=== PATIENT | male | born 1975 ===

== ENCOUNTER 2023-08-06 10:48 | Outpatient (CLI) | payer BC, SELFPAY ==
[2023-08-06 09:02] LABS: HGB 14.2 g/dL (13.5-17.5); MCH 29.2 pg (27.0-33.0); MCHC 31.6 % (32.0-36.0); MCV 93 fL (80-95); MPV 9.7 fL (8.0-11.0); Platelet Count 229 10^3/uL (130-400); RBC 4.86 10^6/uL (4.36-5.78); RDW 13.2 % (11.8-14.1); RDW-SD 44.7 fL; WBC 7.08 10^3/uL (4.4-10.8)
[2023-08-06 09:51] LABS: Anion Gap 7.6 mmol/L (3-11); BUN 15 mg/dL (7-18); CO2 28.4 mmol/L (21.0-32.0); CREATININE 0.8 mg/dL (0.70-1.30); Calcium 9.1 mg/dL (8.5-10.1); Chloride 107 mmol/L (98-107); Estimated GFR 109.17 (mL/min/1.73m2); Glucose 104 mg/dL (74-106); Potassium 4.2 mmol/L (3.5-5.1); Sodium 143 mmol/L (136-145)
[2023-08-06 09:52] LABS: Hemoglobin A1C 4.9 % (<5.7)
--- OUTSIDE RECORDS SUMMARY | 2023-08-06 10:54 | XMS_ITS | Continuity of Care Document ---
Author Name Unknown Organization [facility] Address [address] [place] [address] Care Team Providers Care College Tutor Name Role Phone AYE COREAS Primary Care Physician Encounter BVT Date(s): 03/27/23 - 03/27/23 [facility] [address] [place] [address] Discharge Disposition: Home Attending Physician: AYE COREAS APRN Allergies, Adverse Reactions, Alerts Substance Reaction Severity Status NSAIDs contraindication for litium use Severe Active Assessment and Plan Future Scheduled Tests Laboratory* Lipid Panel Standard 07/30/22 Radiology* XR Chest 2 Views 03/18/23 Immunizations Given and Recorded Vaccine Date Status Refusal Reason SARS-COV-2 (COVID-19) vaccine, unspecifi 04/22/22 Recorded SARS-CoV-2 (COVID-19) mRNA BNT-162b2 vax 06/02/21 Recorded SARS-CoV-2 (COVID-19) mRNA BNT-162b2 vax 11/12/20 Recorded SARS-CoV-2 (COVID-19) mRNA BNT-162b2 vax 10/21/20 Recorded influenza, inactivated 04/24/17 Recorded Tdap 07/24/16 Recorded Medications Albuterol (Eqv-ProAir HFA) 90 mcg/inh inhalation aerosol = 2 puff(s), INH, q4hr, # 8.5 gm, 3 Refill(s), Pharmacy: [facility] #[id number], 2 puff(s) [id number],x30 day(s) Start Date: 03/17/23 Stop Date: 07/15/23 Status: Ordered lithium 300 mg oral tablet, extended release 1,500 mg = 5 tab(s), Oral, Once a day (at bedtime), 0 Refill(s) Start Date: 05/27/22 Status: Ordered multivitamin = 1 tab(s), Oral, Daily, 0 Refill(s) Start Date: 08/29/22 Status: Ordered [place] Gummies [place] Gummies, 1 gummy, Oral, Daily, 0 Refill(s) Start Date: 08/29/22 Status: Ordered sertraline 100 mg oral tablet 200 mg = 2 tab(s), Oral, Daily, 0 Refill(s) Start Date: 05/27/22 Status: Ordered traZODone 100 mg oral tablet 100 mg = 1 tab(s), Oral, Once a day (at bedtime), 0 Refill(s) Start Date: 08/29/22 Status: Ordered Problem List Condition Confirmation Course Effective Dates Status H ealth Status Informant Acute URI Confirmed Active Anxiety Confirmed Active Bipolar disorder Confirmed Active Cough Confirmed Active Family history of carcinomas (Renae Cell) Confirmed Active Mitral regurgitation Confirmed Active Obstructive sleep apnea on CPAP Confirmed Active [place] use Confirmed Active Vital Signs Most recent to oldest [Reference Range]: 1 Peripheral Pulse Rate [60-100 bpm] 72 bp m (03/27/23 11:34 AM) Blood Pressure [90-140/60-90 mmHg] 116/6 4mmHg (03/27/23 11:34 AM) Mean Arterial Pressure, Cuff [70-110 mmH g] 81 mmHg (03/27/23 11:34 AM) SpO2 [92-100 %] 98 % (03/27/23 11:34 AM) BP Method Manual (03/27/23 11:34 AM) Weight 86.2 kg (03/27/23 11:34 AM) Social History Social History Type Response Tobacco Never tobacco user T obacco Use:. Sex Male Patient Care team information Care Team Personnel Name: AYE COREAS APRN Position: [facility] ED Physician LP Member Role: Informed Provider Address: Address: [address] [place] [phone] Care Team Related Persons Name: DOT RICHARDS
--- OUTSIDE RECORDS SUMMARY | 2023-08-06 10:54 | XMS_ITS | Continuity of Care Document ---
Author Name Unknown Organization [facility] Address [address] [place] [address] Care Team Providers Care Lock Corner Machine Operator Name Role Phone AYE COREAS Primary Care Physician Encounter BVT Date(s): 03/31/23 - 03/31/23 [facility] [address] [place] [address] Discharge Disposition: Home Allergies, Adverse Reactions, Alerts Substance Reaction Severity [...] q4hr, # 8.5 gm, 3 Refill(s), Pharmacy: [facility] #[id number], 2 puff(s) [id number] day(s) Start Date: 03/17/23 Stop Date: 07/15/23 Status: Ordered lithium 300 mg oral tablet, extended release 1,500 mg = 5 tab(s), Oral, Once a day (at bedtime), 0 Refill(s) Start Date: 05/27/22 Status: Ordered multivitamin = 1 tab(s), Oral, Daily, 0 Refill(s) Start Date: 08/29/22 Status: Ordered [place] Gummies [place] Gummies, 1 gummy, Oral, Daily, 0 Refill(s) [...] Obstructive sleep apnea on CPAP Confirmed Active [place] use Confirmed Active Social History Social History Type Response Tobacco Never tobacco user T obacco Use:. Sex Male Patient Care team information Care Team Personnel Name: AYE COREAS APRN Position: [facility] ED Physician LP Member Role: Informed Provider Address: Address: [address] [place] [phone] [place] Care Team Related Persons Name: DOT RICHARDS
--- OUTSIDE RECORDS SUMMARY | 2023-08-06 10:54 | XMS_ITS | Continuity of Care Document ---
Author Name Unknown Organization [facility] Address [address] [place] [id number] Care Team Providers Care Irrigationist Designer Name Role Phone AYE OCREAS Primary Care Physician Encounter BVT Date(s): 03/17/23 - 03/17/[address] [address] [phone] Encounter Diagnosis Cough(Discharge Diagnosis) - 03/17/23 Discharge Disposition: Home Attending Physician: Demario Doyle Admitting Physician: Demario Doyle Allergies, Adverse Reactions, Alerts Substance Reaction Severity Status NSAIDs contraindication for litium use Severe Active Assessment and Plan Future Scheduled Tests Laboratory* Lipid Panel Standard 07/30/22 Immunizations Given and Recorded Vaccine Date Status Refusal Reason SARS-COV-2 (COVID-19) vaccine, unspecifi 04/22/22 Recorded SARS-CoV-2 (COVID-19) mRNA BNT-162b2 vax 06/02/21 Recorded SARS-CoV-2 (COVID-19) mRNA BNT-162b2 vax 11/12/20 Recorded SARS-CoV-2 (COVID-19) mRNA BNT-162b2 vax 10/21/20 Recorded influenza, inactivated 04/24/17 Recorded Tdap 07/24/16 Recorded Medications Albuterol (Eqv-ProAir HFA) 90 mcg/inh inhalation aerosol = 2 puff(s), INH, q4hr, # 8.5 gm, 3 Refill(s), Pharmacy: [facility] #[id number], 2 puff(s) [id number],x30 day(s) Start Date: 03/17/23 Stop Date: 07/15/23 Status: Ordered doxycycline hyclate 100 mg oral capsule 100 mg = 1 cap(s), Oral, BID, # 14 cap(s), 0 Refill(s), [id number], 1 cap(s) Oral BID,x7 day(s) Start Date: 03/17/23 Stop Date: 03/24/23 Status: Ordered lithium 300 mg oral tablet, extended release 1,500 mg = 5 tab(s), Oral, Once a day (at bedtime), 0 Refill(s) Start Date: 05/27/22 Status: Ordered multivitamin = 1 tab(s), Oral, Daily, 0 Refill(s) Start Date: 08/29/22 Status: Ordered [place] Gummies G[place] Gummies, 1 gummy, Oral, Daily, 0 Refill(s) [...] Cough Confirmed Active Family history of carcinomas Confirmed Active Mitral regurgitation Confirmed Active Obstructive sleep apnea on CPAP Confirmed Active [place] use Confirmed Active Social History Social History Type Response Tobacco Never tobacco user T obacco Use:. Sex Male Patient Care team information Care Team Personnel Name: AYE COREAS APRN Position: [facility] ED Physician LP Member Role: Informed Provider Address: Address: [address] [place] [phone] [place] Care Team Related Persons Name: DOT RICHARDS
--- OUTSIDE RECORDS SUMMARY | 2023-08-06 10:54 | XMS_ITS | Continuity of Care Document ---
Author Name Unknown Organization [facility] Address [address] [place] [address] Care Team Providers Care Flight Service Agent Name Role Phone AYE COREAS Primary Care Physician Encounter BVT Date(s): 05/28/22 - 05/28/22 [facility] [address] [place] [address] Discharge Disposition: Home Attending Physician: AYE COREAS APRN Allergies, Adverse Reactions, Alerts Substance Reaction Severity Status NSAIDs contraindication for litium use Severe Active Assessment and Plan Future Appointments Future Scheduled Tests Laboratory* Lipid Panel Standard 05/28/22 Functional Status 05/28/22 COVID-19 Screening None Immunizations Given and Recorded Vaccine Date Status Refusal Reason SARS-CoV-2 (COVID-19) mRNA BNT-162b2 vax 06/02/21 Recorded SARS-CoV-2 (COVID-19) mRNA BNT-162b2 vax 11/12/20 Recorded SARS-CoV-2 (COVID-19) mRNA BNT-162b2 vax 10/21/20 Recorded influenza, inactivated 04/24/17 Recorded Tdap 07/24/16 Recorded Medications lithium 300 mg oral tablet, extended release 1,500 mg = 5 tab(s), Oral, Once a day (at bedtime), 0 Refill(s) Start Date: 05/27/22 Status: Ordered sertraline 100 mg oral tablet 200 mg = 2 tab(s), Oral, Daily, 0 Refill(s) Start Date: 05/27/22 Status: Ordered Problem List Condition Confirmation Course Effective Dates Status Health St atus Informant Anxiety Confirmed Active Bipolar disorder Confirmed Active Family history of carcinomas Confirmed Active Vital Signs Most recent to oldest [Reference Range]: 1 Temperature Temporal Artery [36.3-37.8 D egC] 36.5 DegC (05/28/22 1:03 PM) Peripheral Pulse Rate [60-100 bpm] 70 bp m (05/28/22 1:03 PM) Respiratory Rate [14-20 br/min] 18 br/mi n (05/28/22 1:03 PM) Blood Pressure [90-140/60-90 mmHg] 124/8 0mmHg (05/28/22 1:03 PM) Mean Arterial Pressure, Cuff [70-110 mmH g] 95 mmHg (05/28/22 1:03 PM) BP Site Right arm (05/28/22 1:03 PM) Pulse Site Pulse Oximetry (05/28/22 1:03 PM) SpO2 [95 %] 99 % (05/28/22 1:03 PM) Height 177.5 cm (05/28/22 1:03 PM) Height/Length Measured (inches) 69.9 in (05/28/22 1:03 PM) Weight 95.6 kg (05/28/22 1:03 PM) Weight Measured (lbs) 210.762 lb (05/28/22 1:03 PM) BSA Measured 2.17 m2 (05/28/22 1:03 PM) Body Mass Index 30.34 kg/m2 (05/28/22 1:03 PM) Social History Social History Type Response Tobacco Never tobacco user T obacco Use:. Sex Male Patient Care team information Personnel Name: AYE COREAS APRN Address: Address: [address] [place] [phone]
--- OUTSIDE RECORDS SUMMARY | 2023-08-06 10:54 | XMS_ITS | Continuity of Care Document ---
Author Name Unknown Organization [facility] Address [address] [place] [address] Care Team Providers Care Chemicals Fermentation Operator Name Role Phone AEY COREAS Primary Care Physician [phone] Encounter BVT Date(s): 08/29/22 - 08/29/22 [facility] [address] [place] [address] [place] [address] Encounter Diagnosis Palpitations(Discharge Diagnosis) - 08/29/22 Mixed hyperlipidemia(Discharge Diagnosis) - 08/29/22 Discharge Disposition: Home Attending Physician: COLBY SILVA Allergies, Adverse Reactions, Alerts Substance Reaction Severity Status NSAIDs contraindication for litium use Severe Active Assessment and Plan Future Scheduled Tests Laboratory* Lipid Panel Standard 07/30/22 Functional Status 08/29/22 COVID-19 Screening None Immunizations Given and Recorded [...] Refill(s) Start Date: 05/27/22 Status: Ordered multivitamin 1 tab(s), Oral, Daily, 0 Refill(s) Start Date: 08/29/22 Status: Ordered Monitor Gummies Monitor Gummies, 1 gummy, Oral, Daily, 0 Refill(s) [...] Effective Dates Status H ealth Status Informant Anxiety Confirmed Active Bipolar disorder Confirmed Active Family history of carcinomas Confirmed Active Mitral regurgitation Confirmed Active [place] use Confirmed Active Vital Signs Most recent to oldest [Reference Range]: 1 Peripheral Pulse Rate [60-100 bpm] 78 bp m (08/29/22 1:12 PM) Blood Pressure [90-140/60-90 mmHg] 114/7 2mmHg (08/29/22 1:12 PM) Mean Arterial Pressure, Cuff [70-110 mmH g] 86 mmHg (08/29/22 1:12 PM) BP Site Right arm (08/29/22 1:12 PM) BP Site Repeat Left arm (08/29/22 1:12 PM) SpO2 [92-100 %] 96 % (08/29/22 1:12 PM) BP Systolic Repeat 114 mmHg (08/29/22 1:12 PM) BP Diastolic Repeat 66 mmHg (08/29/22 1:12 PM) Weight 92.3 kg (08/29/22 1:12 PM) Weight Measured (lbs) 203.486 lb (08/29/22 1:12 PM) Social History Social History Type Response Tobacco Never tobacco user T obacco Use:. Sex Male Primary care Note * COLBY SILVA E: PERFORM Event Display: Office/Clinic Note Authored Date: [id number] PATO RICHARDS :1975 Age:47 years Sex:Male Visit Date:08/29/2022 Primary Care Physician: AYE COREAS APRN Chief Complaint new patient visit History of Present Illness I had the pleasure of meeting??Mr.??Nick??in the cardiology clinic today.??He is??a??47 year old man, new to me, referred for??elevated LV??function??on echo. ?? Patient with no relevant cardiac history.?? Non-smoker, no alcohol use, no drug use, no chronic medical conditions.?? Family history of atrial fibrillation on his mother side status post ablation,??father had PVCs under stress.?? No current concerning symptoms??for the patient. ? Monitor report from [facility]??performed in March 2021??with normal diurnal variation in heart rate??low ectopy burden and no arrhythmia. Echocardiogram??report from [facility] 06/26/2021??performed for palpitations:??The left ventricular size, segmental motion and systolic function.?Hyperdynamic LV function??estimated at??78%.?? Normal right ventricular size and function.?? Normal atria.?? No hemodynamically??significant valve disease. ?? SH: Smoking:??None??smoker Alcohol:??None Illicit drug use:??None ? FH:?? No family history of premature CAD or sudden cardiac . Physical Exam Vitals & Measurements HR:??78??(Peripheral)?? BP:??114/72?? BP:??114/66(Repeat)?? SpO2:??96%?? WT:??92.3??kg?? General:??Well appearing,??no acute distress. ?? Eye: Normal conjunctiva. Neck: Supple, no carotid bruits, no JVD.? Lungs: Clear to auscultation, non-labored respiration.?? Heart: Normal rate, regular rhythm, no murmur, or edema. Assessment/Plan 1.??Palpitations??R00.2 No current concerning symptoms.?? No concerning abnormality on??prior Holter. 2.??Mixed hyperlipidemia??E78.2 Low??cardiovascular risk.?? Agree with??current diet control. Patient referred due to??echo??cardiogram report from [facility]??reporting hyperdynamic LV systolic function.?? This is not a pathologic finding.?? I??do not have access to the imaging however??the report showed no??abnormality in the cardiac structure and function. ??No concerning symptoms either.?? No f urther??cardiac follow-up??or investigation is recommended at this time. Problem List/Past Medical History Ongoing Anxiety Bipolar disorder Family history of carcinomas [place] use Mitral regurgitation Historical No qualifying data Medications lithium 300 mg oral tablet, extended release, 1500 mg= 5 tab(s), Oral, Once a day (at bedtime) multivitamin, 1 tab(s), Oral, Daily Monitor Gummies, 1 gummy, Oral, Daily sertraline 100 mg oral tablet, 200 mg= 2 tab(s), Oral, Daily traZODone 100 mg oral tablet, 100 mg= 1 tab(s), Oral, Once a day (at bedtime) Allergies NSAIDs??(contraindication for litium use) [Electronically Signed on: 08/29/2022 13:32 EST] COLBY SILVA MD [Verified on: 08/29/2022 13:32 EST] COLBY SILVA MD Patient Care team information Care Team Personnel Name: AYE COREAS APRN Position: [facility] Physician Acute/Clinic/PNED Member Role: Informed Provider Address: Address: [address] [place] [phone] Care Team Related Persons Name: DOT RICHARDS
--- OUTSIDE RECORDS SUMMARY | 2023-08-06 10:54 | XMS_ITS | Continuity of Care Document ---
Author Name Unknown Organization Address [address] [place] [phone] Care Team Providers Care Swine Nutritionist Name Role Phone AYE COREAS Primary Care Physician Encounter BVT Date(s): 04/17/23 - 04/17/[address] [address] [phone] Discharge Disposition: Home Attending Physician: AYE COREAS APRN Admitting Physician: AYE COREAS APRN Allergies, Adverse Reactions, Alerts Substance Reaction Severity Status NSAIDs contraindication for litium use Severe Active Assessment and Plan Future Scheduled Tests Laboratory* Lipid Panel Standard 07/30/22 Immunizations Given and Recorded Vaccine Date Status Refusal Reason influenza, inactivated 04/07/23 Recorded influenza, inactivated 04/24/17 Recorded SARS-CoV-2 mRNA [id number] 04/07/23 Recorded SARS-COV-2 (COVID-19) vaccine, unspecifi 04/22/22 Recorded SARS-CoV-2 (COVID-19) mRNA BNT-162b2 vax 06/02/21 Recorded SARS-CoV-2 (COVID-19) mRNA BNT-162b2 vax 11/12/20 Recorded SARS-CoV-2 (COVID-19) mRNA BNT-162b2 vax 10/21/20 Recorded Tdap 07/24/16 Recorded Medications Albuterol (Eqv-ProAir HFA) 90 mcg/inh inhalation aerosol = 2 puff(s), INH, q4hr, # 8.5 gm, 3 Refill(s), Pharmacy: [facility] #[id number], 2 puff(s) [id number],x30 day(s) Start Date: 03/17/23 Stop Date: 07/15/23 Status: Ordered multivitamin = 1 tab(s), Oral, Daily, 0 Refill(s) Start Date: 08/29/22 Status: Ordered [place] Gummies Freedom Gummies, 1 gummy, Oral, Daily, 0 Refill(s) Start Date: 08/29/22 Status: Ordered sertraline 100 mg oral tablet 200 mg = 2 tab(s), Oral, Daily, 0 Refill(s) Start Date: 05/27/22 Status: Ordered sulindac 150 mg oral tablet 60 tab(s), 0 Refill(s), 0 Refill(s) Start Date: 04/06/23 Status: Ordered traZODone 100 mg oral tablet 100 mg = 1 tab(s), Oral, Once a day (at bedtime), 0 Refill(s) Start Date: 08/29/22 Status: Ordered Problem List Condition Confirmation Course Effective Dates Status H ealth Status Informant Acute URI Confirmed Active Anxiety Confirmed Active Bipolar disorder Confirmed Active Cough Confirmed Active Family history of carcinomas (Renae Cell) Confirmed Active Lingular pneumonia Confirmed Active Mitral regurgitation Confirmed Active Obstructive sleep apnea on CPAP Confirmed Active [place] use Confirmed Active Results Radiology Reports * Exam Date Time Procedure Performing Provider Status 04/17/23 3:18 PM XR Chest 2 Views Sophia Casanova; Tucker (Verified) Notes: (XR Chest 2 Views) Reason For Exam: follow up pneumonia XR Chest 2 Views EXAMINATION: XR Chest 2 Views CLINICAL HISTORY: follow up pneumonia TECHNIQUE: PA and lateral chest radiograph. COMPARISON: 03/17/2023. FINDINGS: Normal cardiomediastinal silhouette and vascular markings. Resolution of lingular opacity. No pneumothorax or pleural effusion. IMPRESSION: Resolution of lingular pneumonia I have personally reviewed the image(s) and the resident's interpretation and agree with the findings, Valerie Hernandez MD at 04/17/2023 4:15 PM Thank you for letting us participate in the care of this patient. If you are a health care provider and have any questions regarding this report, please contact the number below. For patients who have questions please contact the health home health care respiratory therapist that requested your imaging first. Electronically signed by: Valerie Hernandez MD, [facility] ([phone]), at 04/17/2023 4:15 PM Final Dictated: 04/17/2023 4:15 pm VALERIE HERNANDEZ Signed (Electronic Signature): 04/17/2023 4:15 pm Signed by: VALERIE HERNANDEZ Social History Social History Type Response Tobacco Never tobacco user T obacco Use:. Sex Male Patient Care team information Care Team Personnel Name: AYE COREAS APRN Position: [facility] ED Physician LP Member Role: Informed Provider Address: Address: [address] [place] [address] Care Team Related Persons Name: DOT RICHARDS
--- OUTSIDE RECORDS SUMMARY | 2023-08-06 10:54 | XMS_ITS | Continuity of Care Document ---
Author Name Unknown Organization [facility] Address [address] [place] [address] Care Team Providers Care Superintendent Police Name Role Phone AYE COREAS Primary Care Physician Encounter BVT Date(s): 07/30/22 - 07/30/22 [facility] [address] [place] [address] Encounter Diagnosis Bipolar disorder(Discharge Diagnosis) - 07/30/22 Hyperlipidemia(Discharge Diagnosis) - 07/30/22 Screen for colon cancer(Discharge Diagnosis) - 07/30/22 Discharge Disposition: Home Attending Physician: AYE COREAS APRN Allergies, Adverse Reactions, Alerts Substance Reaction Severity Status NSAIDs contraindication for litium use Severe Active Assessment and Plan Future Appointments Future Scheduled Tests Laboratory* Lipid Panel Standard 07/30/22 Functional Status 07/30/22 COVID-19 Screening None Immunizations Given and Recorded [...] carcinomas Confirmed Active Mitral regurgitation Confirmed Active [place] use Confirmed Active Vital Signs Most recent to oldest [Reference Range]: 1 Temperature Temporal Artery [36.3-37.8 D egC] 36.7 DegC (07/30/22 7:55 AM) Apical Heart Rate [60-100 bpm] 73 bpm (07/30/22 7:55 AM) Respiratory Rate [14-20 br/min] 18 br/mi n (07/30/22 7:55 AM) Blood Pressure [90-140/60-90 mmHg] 124/7 8mmHg (07/30/22 7:55 AM) Mean Arterial Pressure, Cuff [70-110 mmH g] 93 mmHg (07/30/22 7:55 AM) BP Site Right arm (07/30/22 7:55 AM) Pulse Site Pulse Oximetry (07/30/22 7:55 AM) SpO2 [92-100 %] 99 % (07/30/22 7:55 AM) Height 177.5 cm (07/30/22 7:55 AM) Height/Length Measured (inches) 69.9 in (07/30/22 7:55 AM) Weight 96.3 kg (07/30/22 7:55 AM) Weight Measured (lbs) 212.305 lb (07/30/22 7:55 AM) BSA Measured 2.18 m2 (07/30/22 7:55 AM) Body Mass Index 30.57 kg/m2 (07/30/22 7:55 AM) Social History Social History Type Response Tobacco Never tobacco user T obacco Use:. Sex Male Hospital Discharge Instructions Follow Up Care 07/30/2022 07:49:55 With:Return to this practice Address: When:Within 6 Month(s) Primary care Note * AYE COREAS APRN: PERFORM Event Display: Office/Clinic Note Authored Date: [id number] PATO RICHARDS :1975 Age:46 years Sex:Male Visit Date:07/30/2022 Primary Care Physician: AYE COREAS APRN Chief Complaint 2 MO F/U History of Present Illness ?? Here for follow up. ?? Will schedule with cardiology??(playing phone tag). Has appt with sleep medicine in August. ?? Has made major dietary changes to address elevated triglycerides, low HDL, mildly elevated LDL. Low fat meats, minimal dairy, whole grains, fruits/veg. ?? Working toward more exercise. Hasn't started yet. Very busy. ?? Physical Exam Vitals & Measurements T:??36.7?C ??(Temporal Artery)?? HR:??73??(Apical)?? RR:??18?? BP:??124/78?? SpO2:??99%?? HT:??177.5??cm?? WT:??96.3??kg?? BMI:??30.57?? BSA:??2.18?? GEN:?no acute distress, speaking comfortably LUNGS: non-labored respiration NEURO:?Alert and oriented x 3,??normal speech PSYCH: affect normal ?? Assessment/Plan 1.??Hyperlipidemia??E78.5 Continue with lifestyle changes. Repeat labs in ~3 months. ?? Ordered: Lipid Panel Standard, Blood, Routine collect, *Est. 07/30/22 due within 12 month(s), Hyperlipidemia, Order for future visit ?? 2.??Bipolar disorder??F31.9 Stable, managed by psychiatry. ? 3.??Screen for colon cancer??Z12.11 See TE re Cologuard - ordered but pt has not received. ?? Future Orders Lipid Panel Standard, Blood, Routine collect, *Est. 07/30/22 due within 12 month(s), Hyperlipidemia, Order for future visit Follow Up Instructions With When Contact Information Return to this practice In 6 months Additional Instructions: Problem List/Past Medical History Ongoing Anxiety Bipolar disorder Family history of carcinomas [place] use Mitral regurgitation Historical No qualifying data Medications lithium 300 mg oral tablet, extended release, 1500 mg= 5 tab(s), Oral, Once a day (at bedtime) sertraline 100 mg oral tablet, 200 mg= 2 tab(s), Oral, Daily Allergies NSAIDs??(contraindication for litium use) Social History Alcohol Past Electronic Cigarette/Vaping Electronic Cigarette Use: Never. Substance Abuse Never Tobacco Never tobacco user Tobacco Use:. Family History Alcohol abuse: Father. Atrial fibrillation: Mother. Depression: Mother. Myocardial infarction: Uncle (Maternal). Polyp colon: Mother and Father. Immunizations Vaccine Date Status SARS-COV-2 (COVID-19) vaccine, unspecifi 04/22/2022 Recorded SARS-CoV-2 (COVID-19) mRNA BNT-162b2 vax 06/02/2021 Recorded SARS-CoV-2 (COVID-19) mRNA BNT-162b2 vax 11/12/2020 Recorded SARS-CoV-2 (COVID-19) mRNA BNT-162b2 vax 10/21/2020 Recorded influenza, inactivated 04/24/2017 Recorded Tdap 07/24/2016 Recorded [Electronically Signed on: 07/30/2022 08:44 EST] AYE COREAS APRN, APRN [Verified on: 07/30/2022 08:44 EST] AYE COREAS APRN, APRN Patient Care team information Personnel Name: AYE COREAS APRN Address: Address: [address] [place] [phone]
--- OUTSIDE RECORDS SUMMARY | 2023-08-06 10:54 | XMS_ITS | Continuity of Care Document ---
Author Name Unknown Organization [facility] Address [address] [place] [phone]- Care Team Providers Care Landscape Artist Name Role Phone AYE COREAS Primary Care Physician Encounter BVT Date(s): 05/02/22 - 05/02/[address] [address] [phone] Discharge Disposition: Home Attending Physician: AYE COREAS APRN Admitting Physician: AYE COREAS APRN Allergies, Adverse Reactions, Alerts No Known Allergies Assessment and Plan Future Appointments Problem List Condition Confirmation Course Effective Dates Status Health St atus Informant Anxiety Confirmed Active Bipolar disorder Confirmed Active Family history of carcinomas Confirmed Active Results Laboratory List Name Date Basic Metabolic Panel Standard (BMP [place] dard) 05/02/22 [place] ([place]) Level 05/02/22 Most recent to oldest [Reference Range]: 1 eGFR CKD-EPI [>=60 mL/min/1.73 m2] 111.1 2 mL/min/1.73 m2 *NA* (05/02/22 7:37 AM) Creatinine [0.70-1.20 mg/dL] 0.77 mg/dL (05/02/22 7:37 AM) AGAP [10.0-18.0 mmol/L] 8.3 mmol/L *LOW* (05/02/22 7:37 AM) Glucose Lvl [70-100 mg/dL] 96 mg/dL (05/02/22 7:37 AM) [place] Lvl [0.60-1.20 mmol/L] 0.90 mmol /L (05/02/22 7:37 AM) Osmolality [268.0-291.0 mOsm/kg] 276.8 m Osm/kg (05/02/22 7:37 AM) Sodium Lvl [136-145 mmol/L] 139 mmol/L (05/02/22 7:37 AM) CO2 [22-29 mmol/L] 28 mmol/L (05/02/22 7:37 AM) BUN [6-23 mg/dL] 11 mg/dL (05/02/22 7:37 AM) Calcium Lvl [8.6-10.2 mg/dL] 9.0 mg/dL (05/02/22 7:37 AM) Chloride [98-107 mmol/L] 107 mmol/L (05/02/22 7:37 AM) Potassium Lvl [3.5-5.1 mmol/L] 4.3 mmol/ L (05/02/22 7:37 AM) Social History Social History Type Response Tobacco Never tobacco user T obacco Use:. Sex Patient Care team information Care Team Personnel Name: AYE COREAS APRN Position: [facility] Physician Acute/Clinic/PNED Member Role: Informed Provider Address: Address: [address] [place] [phone] Care Team Related Persons Name: DOT RICHARDS
--- OUTSIDE RECORDS SUMMARY | 2023-08-06 10:54 | XMS_ITS | Continuity of Care Document ---
Author Name Unknown Organization [facility] Address [address] [place] [phone]- Care Team Providers Care Concrete Precast Moulder Name Role Phone AYE COREAS Primary Care Physician [phone] Encounter BVT Date(s): 07/10/22 - 07/10/[address] [address]- [place] [phone] Discharge Disposition: Home Attending Physician: AYE COREAS APRN Admitting Physician: AYE COREAS APRN Allergies, Adverse Reactions, Alerts Substance Reaction Severity Status NSAIDs contraindication for litium use Severe Active Assessment and Plan Future Appointments Immunizations Given and Recorded Vaccine Date Status [...] carcinomas Confirmed Active Mitral regurgitation Confirmed Active [place] use Confirmed Active Results Laboratory List Name Date Lipid Panel Standard 07/10/22 Most recent to oldest [Reference Range]: 1 Trig [0.0-149.0 mg/dL] 331.6 mg/dL *HI* (07/10/22 1:58 PM) Cholesterol Total [0-200 mg/dL] 229 mg/d L *HI* (07/10/22 1:58 PM) HDL Cholesterol [40-60 mg/dL] 36 mg/dL *LOW* (07/10/22 1:58 PM) LDL Calculated 127 mg/dL *NA* (07/10/22 1:58 PM) Social History Social History Type Response Tobacco Never tobacco user T obacco Use:. Sex Male Patient Care team information Personnel Name: AYE COREAS APRN Address: Address: [address] [place] [phone]
--- OUTSIDE RECORDS SUMMARY | 2023-08-06 10:54 | XMS_ITS | Continuity of Care Document ---
Author Name Unknown Organization [facility] Address [address] [place] [address] Care Team Providers Care Reference Test Clerk Name Role Phone YAE COREAS Primary Care Physician Encounter BVT Date(s): 03/17/23 - 03/17/23 [facility] [address] [place] [address] Discharge Disposition: Home Allergies, Adverse Reactions, Alerts [...] q4hr, # 8.5 gm, 3 Refill(s), Pharmacy: [facility] #[id number], 2 puff(s) [id number],x30 day(s) Start Date: 03/17/23 Stop Date: 07/15/23 Status: Ordered doxycycline hyclate 100 mg oral capsule 100 mg = 1 cap(s), Oral, BID, # 14 cap(s), 0 Refill(s), Pharmacy: [facility] #[id number], 1 cap(s) Oral BID,x7 day(s) Start Date: 03/17/23 Stop Date: 03/24/23 Status: Ordered lithium 300 mg oral tablet, extended release 1,500 mg = 5 tab(s), Oral, Once a day (at bedtime), 0 Refill(s) Start Date: 05/27/22 Status: Ordered multivitamin = 1 tab(s), Oral, Daily, 0 Refill(s) Start Date: 08/29/22 Status: Ordered [place] Gummies [place] Gummies, 1 gummy, Oral, Daily, 0 Refill(s) [...] Obstructive sleep apnea on CPAP Confirmed Active [place] use Confirmed Active Social History Social History Type Response Tobacco Never tobacco user T obacco Use:. Sex Male Patient Care team information Care Team Personnel Name: AYE COREAS APRN Position: [facility] ED Physician LP Member Role: Informed Provider Address: Address: [address] [place] [phone] [place] Care Team Related Persons Name: DOT RICHARDS
--- OUTSIDE RECORDS SUMMARY | 2023-08-06 10:54 | XMS_ITS | Continuity of Care Document ---
Author Name Unknown Organization [facility] Address [address] [place] [address] Care Team Providers Care Extruder Name Role Phone AYE COREAS Primary Care Physician Encounter BVT Date(s): 04/17/23 - 04/17/23 [facility] [address] [place] [address] Discharge Disposition: Home Allergies, Adverse Reactions, Alerts Substance Reaction Severity Status NSAIDs contraindication for litium use Severe Active Assessment and Plan Future Scheduled Tests Laboratory* Lipid Panel Standard 07/30/22 Immunizations Given and Recorded Vaccine Date Status Refusal Reason influenza, inactivated 04/07/23 Recorded influenza, inactivated 04/24/17 Recorded SARS-CoV-2 mRNA [id number] 04/07/23 Recorded SARS-COV-2 (COVID-19) vaccine, unspecifi 04/22/22 Recorded SARS-CoV-2 (COVID-19) mRNA BNT-162b2 vax 06/02/21 Recorded SARS-CoV-2 (COVID-19) mRNA BNT-162b2 vax 11/12/20 Recorded SARS-CoV-2 (COVID-19) mRNA BNT-162b2 vax 10/21/20 Recorded Tdap 07/24/16 Recorded Medications Albuterol (Eqv-ProAir HFA) 90 mcg/inh inhalation aerosol = 2 puff(s), INH, q4hr, # 8.5 gm, 3 Refill(s), Pharmacy: [facility] #[id number], 2 puff(s) [id number],x30 day(s) Start Date: 03/17/23 Stop Date: 07/15/23 Status: Ordered multivitamin = 1 tab(s), Oral, Daily, 0 Refill(s) Start Date: 08/29/22 Status: Ordered [place] Gummies [place] Gummies, 1 gummy, Oral, Daily, 0 Refill(s) [...] Obstructive sleep apnea on CPAP Confirmed Active [place] use Confirmed Active Social History Social History Type Response Tobacco Never tobacco user T obacco Use:. Sex Male Patient Care team information Care Team Personnel Name: AYE COREAS APRN Position: [facility] ED Physician LP Member Role: Informed Provider Address: Address: [address] [place] [address] Care Team Related Persons Name: DOT RICHARDS
--- OUTSIDE RECORDS SUMMARY | 2023-08-06 10:54 | XMS_ITS | Continuity of Care Document ---
Author Name Unknown Organization [facility] Address [address] [place] [address] Care Team Providers Care Mechanical Maintenance Name Role Phone AYE COERAS Primary Care Physician Encounter BVT Date(s): 04/10/23 - 04/10/23 [facility] [address] [place] [address] Discharge Disposition: Home Allergies, Adverse Reactions, Alerts Substance Reaction Severity Status NSAIDs contraindication for litium use Severe Active Assessment and Plan Future Scheduled Tests Laboratory* Lipid Panel Standard 07/30/22 Radiology* XR Chest 2 Views 03/18/23 Immunizations Given and Recorded Vaccine Date Status Refusal Reason influenza, inactivated 04/07/23 Recorded influenza, inactivated 04/24/17 Recorded SARS-CoV-2 mRNA instssqxucq-oahb-jqmeypu 04/07/23 Recorded SARS-COV-2 (COVID-19) vaccine, unspecifi 04/22/22 Recorded SARS-CoV-2 (COVID-19) mRNA BNT-162b2 vax 06/02/21 Recorded SARS-CoV-2 (COVID-19) mRNA BNT-162b2 vax 11/12/20 Recorded SARS-CoV-2 (COVID-19) mRNA BNT-162b2 vax 10/21/20 Recorded Tdap 07/24/16 Recorded Medications Albuterol (Eqv-ProAir HFA) 90 mcg/inh inhalation aerosol = 2 puff(s), INH, q4hr, # 8.5 gm, 3 Refill(s), Pharmacy: [facility] #[id number], 2 puff(s) [id number],x30 day(s) Start Date: 03/17/23 Stop Date: 1/23/24 Status: Ordered multivitamin = 1 tab(s), Oral, Daily, 0 Refill(s) Start Date: 08/29/22 Status: Ordered [place] Gummies [place] Gummies, 1 gummy, Oral, Daily, 0 Refill(s) [...] Obstructive sleep apnea on CPAP Confirmed Active [place] use Confirmed Active Social History Social History Type Response Tobacco Never tobacco user T obacco Use:. Sex Male Patient Care team information Care Team Personnel Name: AYE COREAS APRN Position: [facility] ED Physician LP Member Role: Informed Provider Address: Address: [address] [place] [phone] [place] Care Team Related Persons Name: DOT RICHARDS
--- OUTSIDE RECORDS SUMMARY | 2023-08-06 10:54 | XMS_ITS | Continuity of Care Document ---
Author Name Unknown Organization [facility] Address [address] [place] [phone]- Care Team Providers Care Certified Adaptive Physical Educator Name Role Phone AYE COREAS Primary Care Physician Encounter BVT Date(s): 03/17/23 - 03/17/[address] [address] [phone] Discharge Disposition: Home Attending Physician: Demario Doyle [...] q4hr, # 8.5 gm, 3 Refill(s), Pharmacy: [facility] #[id number], 2 puff(s) [id number],x30 day(s) Start Date: 03/17/23 Stop Date: 07/15/23 Status: Ordered doxycycline hyclate 100 mg oral capsule 100 mg = 1 cap(s), Oral, BID, # 14 cap(s), 0 Refill(s), Pharmacy: [facility] #[id number], 1 cap(s) Oral BID,x7 day(s) Start Date: 03/17/23 Stop Date: 03/24/23 Status: Ordered lithium 300 mg oral tablet, extended release 1,500 mg = 5 tab(s), Oral, Once a day (at bedtime), 0 Refill(s) Start Date: 05/27/22 Status: Ordered multivitamin = 1 tab(s), Oral, Daily, 0 Refill(s) Start Date: 08/29/22 Status: Ordered [place] Gummies [place] Gummies, 1 gummy, Oral, Daily, 0 Refill(s) [...] Obstructive sleep apnea on CPAP Confirmed Active [place] use Confirmed Active Results Radiology Reports * Exam Date Time Procedure Performing Provider Status 03/17/23 1:39 PM XR Chest 2 Views Beckie Adames; Brannon odified Notes: (XR Chest 2 Views) Reason For Exam: Cough XR Chest 2 Views --------ADDENDUM #1-------- The Workflow Coordinator spoke with Demario Doyle APRN on 03/17/2023 4:56 PM to relay the results. I have personally reviewed the image(s) and the resident's interpretation and agree with the findings, Valerie Hernandez MD at 03/17/2023 4:58 PM Thank you for letting us participate in the care of this patient. If you are a health care provider and have any questions regarding this report, please contact the number below. For patients who have questions please contact the health career development facilitator that requested your imaging first. Electronically signed by: Valerie Hernandez MD, [facility] ([phone]), at 03/17/2023 4:58 PM --------ORIGINAL REPORT -------- EXAMINATION: XR Chest 2 Views CLINICAL HISTORY: Cough TECHNIQUE: PA and lateral radiographs of the chest COMPARISON: None FINDINGS: There is opacity in the lingula. The right lung is clear. No pleural effusion. No pneumothorax. The cardiomediastinal silhouette is within normal limits. IMPRESSION: Lingular opacity consistent with pneumonia in the appropriate setting. Repeat PA and lateral chest radiographs recommended in 6 weeks following treatment to ensure resolution. I have personally reviewed the image(s) and the resident's interpretation and agree with the findings, Valerie Hernandez MD at 03/17/2023 3:12 PM Thank you for letting us participate in the care of this patient. If you are a health care provider and have any questions regarding this report, please contact the number below. For patients who have questions please contact the health career development facilitator that requested your imaging first. Electronically signed by: Valerie Hernandez MD, [facility] ([phone]), at 03/17/2023 3:12 PM Final Dictated: 03/17/2023 4:58 pm VALERIE HERNANDEZ Signed (Electronic Signature): 03/17/2023 4:58 pm Signed by: VALERIE HERNANDEZ XR Chest 2 Views EXAMINATION: XR Chest 2 Views CLINICAL HISTORY: Cough TECHNIQUE: PA and lateral radiographs of the chest COMPARISON: None FINDINGS: There is opacity in the lingula. The right lung is clear. No pleural effusion. No pneumothorax. The cardiomediastinal silhouette is within normal limits. IMPRESSION: Lingular opacity consistent with pneumonia in the appropriate setting. Repeat PA and lateral chest radiographs recommended in 6 weeks following treatment to ensure resolution. I have personally reviewed the image(s) and the resident's interpretation and agree with the findings, Valerie Hernandez MD at 03/17/2023 3:12 PM Thank you for letting us participate in the care of this patient. If you are a health care provider and have any questions regarding this report, please contact the number below. For patients who have questions please contact the health career development facilitator that requested your imaging first. Electronically signed by: Valerie Hernandez MD, [facility] ([phone]), at 03/17/2023 3:12 PM Final Dictated: 03/17/2023 3:12 pm VALERIE HERNANDEZ Signed (Electronic Signature): 03/17/2023 3:12 pm Signed by: VALERIE HERNANDEZ Social History Social History Type Response Tobacco Never tobacco user T obacco Use:. Sex Male Patient Care team information Care Team Personnel Name: AYE COREAS APRN Position: [facility] ED Physician LP Member Role: Informed Provider Address: Address: [address] [place] [phone] Care Team Related Persons Name: DOT RICHARDS
--- OUTSIDE RECORDS SUMMARY | 2023-08-06 10:55 | XMS_ITS | Continuity of Care Document ---
Author Name Unknown Organization [facility] Address [address] [place] [address] Care Team Providers Care Iron Molder Helper Name Role Phone AYE COREAS Primary Care Physician Encounter BVT Date(s): 03/17/23 - 03/17/23 [facility] [address] [place] [address] Encounter Diagnosis Cough(Discharge Diagnosis) - 03/17/23 Acute URI(Discharge Diagnosis) - 03/17/23 Discharge Disposition: Home Attending Physician: Demario Doyle Allergies, Adverse Reactions, Alerts [...] q4hr, # 8.5 gm, 3 Refill(s), Pharmacy: [facility] #[id number], 2 puff(s) [id number],x30 day(s) Start Date: 03/17/23 Stop Date: 07/15/23 Status: Ordered doxycycline hyclate 100 mg oral capsule 100 mg = 1 cap(s), Oral, BID, # 14 cap(s), 0 Refill(s), Pharmacy: [facility] #[id number], 1 cap(s) Oral BID,x7 day(s) Start Date: 03/17/23 Stop Date: 03/24/23 Status: Ordered lithium 300 mg oral tablet, extended release 1,500 mg = 5 tab(s), Oral, Once a day (at bedtime), 0 Refill(s) Start Date: 05/27/22 Status: Ordered multivitamin = 1 tab(s), Oral, Daily, 0 Refill(s) Start Date: 08/29/22 Status: Ordered [place] Gummies [place] Gummies, 1 gummy, Oral, Daily, 0 Refill(s) [...] Obstructive sleep apnea on CPAP Confirmed Active [facility] use Confirmed Active Vital Signs Most recent to oldest [Reference Range]: 1 Temperature Tympanic [36.6-38.1 DegC] 36 .2 DegC *LOW* (03/17/23 11:38 AM) Peripheral Pulse Rate [60-100 bpm] 74 bp m (03/17/23 11:38 AM) Respiratory Rate [14-20 br/min] 19 br/mi n (03/17/23 11:38 AM) Blood Pressure [90-140/60-90 mmHg] 130/7 6mmHg (03/17/23 11:38 AM) Mean Arterial Pressure, Cuff [70-110 mmH g] 94 mmHg (03/17/23 11:38 AM) SpO2 [92-100 %] 98 % (03/17/23 11:38 AM) Social History Social History Type Response Tobacco Never tobacco user T obacco Use:. Sex Male Patient Care team information Care Team Personnel Name: AYE COREAS APRN Position: [facility] ED Physician LP Member Role: Informed Provider Address: Address: [address] [place] [phone] Care Team Related Persons Name: DOT RICHARDS
== END 2023-08-06 10:49 | disposition home or self-care (01) ==
LOC: LBO 10:52
PROVIDERS: Visit Provider Psychiatry & Neurology Psychiatry
DX: F31.81 Bipolar II disorder (principal); Z51.81 Encounter for therapeutic drug level monitoring; Z79.899 Other long term (current) drug therapy
CPT/HCPCS: 36415; 80048; 85027; 80178; 83036